=== PATIENT | female | born 1975 | race Hispanic/Latino ===

== ENCOUNTER 2020-11-27 08:58 | Emergency (ER) | payer SELFPAY ==
[~2020-11-27] VITALS: Ht 175.3 cm; Wt 122.5 kg
[2020-11-27] MEDS ORDERED: ONDANSETRON HCL INJ 2MG/ML 2ML 2 MG/ML VIAL IV NR (09:25)
[2020-11-27] MEDS ORDERED: CASIRIVIMAB/IMDEVIMAB 10 ML in SODIUM CHLORIDE 0.9% 100 ML IV ONE (09:30)
[2020-11-27] MEDS ORDERED: IBUPROFEN 600 MG TAB PO NR (09:30)
== END 2020-11-27 10:35 | disposition home or self-care (01) ==
LOC: ER 09:15
DX: R50.9 Fever, unspecified (principal); R06.02 Shortness of breath; R05 Cough; U07.1 COVID-19; R11.2 Nausea with vomiting, unspecified; I10 Essential (primary) hypertension; M32.9 Systemic lupus erythematosus, unspecified; F41.9 Anxiety disorder, unspecified
CPT/HCPCS: 99283; J2405; J7050

== ENCOUNTER 2020-11-28 17:20 | Inpatient (IN) | payer OTHER, SELFPAY ==
[~2020-11-28] VITALS: Ht 170.2 cm; Wt 106.3 kg
[2020-11-28] MEDS ORDERED: DEXAMETHASONE SOD PHOS 10 MG/1 ML VIAL IV ONE (18:00)
[2020-11-28] MEDS ORDERED: CEFTRIAXONE 2 GM in SODIUM CHLORIDE 0.9% 100 ML IV ONE (18:00)
[2020-11-28] MEDS ORDERED: SODIUM CHLORIDE 0.9% 1000ML 1,000 ML IV ONE (18:00)
[2020-11-28 18:10] LABS: BASOPHILS % 0.2 % (0.0-1.0); HEMATOCRIT 43.7 % (34.2-44.1); LYMPHOCYTES # (AUTO) 0.9 (1.0-3.2); LYMPHOCYTES % 14.2 % (18.0-39.1); MEAN CORPUSCULAR HEMOGLOBIN 27.7 pg (28-32); MEAN CORPUSCULAR VOLUME 86.4 fL (81-99); MONOCYTES # (AUTO) 0.3 (0.2-0.8); MONOCYTES % 4.7 % (4.4-11.3); NEUTROPHILS # (AUTO) 5.3 (2.1-6.9); NEUTROPHILS % 80.4 % (38.7-80.0); PLATELET COUNT 252 x10e3/uL (140-360); RED BLOOD COUNT 5.06 x10e6/uL (3.6-5.1); RED CELL DISTRIBUTION WIDTH 14.3 % (11.7-14.4)
[2020-11-28 18:34] LABS: ALANINE AMINOTRANSFERASE 27 IU/L (0-55); ALBUMIN 2.9 g/dL (3.5-5.0); ALBUMIN/GLOBULIN RATIO 0.5 (0.8-2.0); ALKALINE PHOSPHATASE 53 IU/L (40-150); ANION GAP 16.4 mmol/L (8-16); BLOOD UREA NITROGEN 12 mg/dL (7-26); BUN/CREATININE RATIO 11 (6-25); CALCIUM 9.3 mg/dL (8.4-10.2); CARBON DIOXIDE 24 mmol/L (22-29); CHLORIDE 103 mmol/L (98-107); CREATINE KINASE 92 IU/L (29-168); CREATININE, SERUM 1.07 mg/dL (0.57-1.11); EST GLOMERULAR FILTRATION RATE 56 ML/MIN (60-); GLUCOSE 118 mg/dL (74-118); POTASSIUM 3.4 mmol/L (3.5-5.1); SODIUM 140 mmol/L (136-145)
[2020-11-28] MEDS: ASCORBIC ACID 500 MG TAB PO SCH (20:00)
[2020-11-28] MEDS: SODIUM CHLORIDE 0.9% 1000ML 1,000 ML IV SCH (20:00)
[2020-11-28] MEDS ORDERED: ONDANSETRON HCL INJ 2MG/ML 2ML 2 MG/ML VIAL IV PRN (20:00)
[2020-11-28] MEDS: ENOXAPARIN INJ 80 MG/0.8 ML SYR SC SCH (20:00)
[2020-11-29] MEDS: SODIUM CHLORIDE 0.9% 1000ML 1,000 ML IV SCH ×3 (03:37→20:45)
[2020-11-29] MEDS ORDERED: GUAIFENESIN/DEXTROMETHORPHAN LIQD 5 ML UDC NG PRN (05:15)
[2020-11-29] MEDS ORDERED: ZOLPIDEM TARTRATE 5 MG TAB PO PRN (05:15)
[2020-11-29 06:12] LABS: HEMATOCRIT 35.7 % (34.2-44.1); HEMOGLOBIN 12.2 g/dL (12.0-16.0); LYMPHOCYTES # (AUTO) 0.5 (1.0-3.2); LYMPHOCYTES % 15.4 % (18.0-39.1); MEAN CORPUSCULAR HEMOGLOBIN 30.3 pg (28-32); MEAN CORPUSCULAR HGB CONC 34.2 g/dL (31-35); MEAN CORPUSCULAR VOLUME 88.6 fL (81-99); MONOCYTES # (AUTO) 0.2 (0.2-0.8); MONOCYTES % 5.1 % (4.4-11.3); NEUTROPHILS # (AUTO) 2.5 (2.1-6.9); NEUTROPHILS % 79.2 % (38.7-80.0); PLATELET COUNT 177 x10e3/uL (140-360); RED BLOOD COUNT 4.03 x10e6/uL (3.6-5.1); RED CELL DISTRIBUTION WIDTH 15.9 % (11.7-14.4)
[2020-11-29 06:47] LABS: CREATINE KINASE 64 IU/L (29-168)
[2020-11-29 06:49] LABS: ALBUMIN 2.5 g/dL (3.5-5.0); ALBUMIN/GLOBULIN RATIO 0.5 (0.8-2.0); ANION GAP 16.7 mmol/L (8-16); CALCIUM 8.6 mg/dL (8.4-10.2); CREATININE, SERUM 0.78 mg/dL (0.57-1.11); POTASSIUM 3.7 mmol/L (3.5-5.1)
[2020-11-29] MEDS ORDERED: GUAIFENESIN/DEXTROMETHORPHAN 237 ML SYRUP PO PRN (07:30)
[2020-11-29] MEDS: DEXAMETHASONE SOD PHOS 10 MG/1 ML VIAL IV SCH (08:43)
[2020-11-29] MEDS: BENZONATATE 100 MG CAP PO SCH ×3 (08:47→21:00)
[2020-11-29] MEDS: LORATADINE 10 MG TAB PO SCH (08:47)
[2020-11-29] MEDS: ASCORBIC ACID 500 MG TAB PO SCH ×2 (08:48→16:12)
[2020-11-29] MEDS: ENOXAPARIN INJ 80 MG/0.8 ML SYR SC SCH ×2 (08:50→16:12)
[2020-11-29] MEDS ORDERED: REMDESIVIR 200MG 200 MG IV ONE (09:00)
[2020-11-29] MEDS ORDERED: REMDESIVIR 200MG 200 MG in SODIUM CHLORIDE 0.9% 100 ML IV ONE (09:00)
[2020-11-29] MEDS: ZINC SULFATE 50 MG CAP PO SCH (10:24)
[2020-11-29 15:26] VITALS: BP 138/77
[2020-11-29] MEDS ORDERED: BUSPIRONE HCL10 MG PO (15:41)
[2020-11-29] MEDS ORDERED: AMLODIPINE BESYL5 MG PO (15:41)
[2020-11-29 16:01] LABS: CREATINE KINASE 58 IU/L (29-168)
[2020-11-29] MEDS: CEFTRIAXONE 2 GM in SODIUM CHLORIDE 0.9% 100 ML IV SCH (17:14)
[2020-11-29 20:00] VITALS: BP 133/75
[2020-11-29 22:53] VITALS: BP 133/75
[2020-11-30] VITALS (8 sets, daily range): BP systolic 102–150; BP diastolic 62–88
[2020-11-30] MEDS: SODIUM CHLORIDE 0.9% 1000ML 1,000 ML IV SCH ×3 (06:43→22:00)
[2020-11-30] MEDS: DEXAMETHASONE SOD PHOS 10 MG/1 ML VIAL IV SCH (08:31)
[2020-11-30] MEDS: BENZONATATE 100 MG CAP PO SCH ×3 (08:31→21:00)
[2020-11-30] MEDS: ENOXAPARIN INJ 80 MG/0.8 ML SYR SC SCH ×2 (08:31→17:14)
[2020-11-30] MEDS: LORATADINE 10 MG TAB PO SCH (08:31)
[2020-11-30] MEDS: REMDESIVIR 100MG 100 MG in SODIUM CHLORIDE 0.9% 100 ML IV SCH (08:31)
[2020-11-30] MEDS: ZINC SULFATE 50 MG CAP PO SCH (08:32)
[2020-11-30] MEDS: ASCORBIC ACID 500 MG TAB PO SCH ×2 (08:32→17:14)
[2020-11-30 08:49] LABS: BASOPHILS % 0.1 % (0.0-1.0); HEMATOCRIT 43.1 % (34.2-44.1); HEMOGLOBIN 13.1 g/dL (12.0-16.0); LYMPHOCYTES # (AUTO) 0.9 (1.0-3.2); LYMPHOCYTES % 12.8 % (18.0-39.1); MEAN CORPUSCULAR HEMOGLOBIN 27.1 pg (28-32); MEAN CORPUSCULAR HGB CONC 30.4 g/dL (31-35); MEAN CORPUSCULAR VOLUME 89.2 fL (81-99); MONOCYTES # (AUTO) 0.6 (0.2-0.8); MONOCYTES % 8.6 % (4.4-11.3); NEUTROPHILS # (AUTO) 5.4 (2.1-6.9); NEUTROPHILS % 78.1 % (38.7-80.0); PLATELET COUNT 291 x10e3/uL (140-360); RED BLOOD COUNT 4.83 x10e6/uL (3.6-5.1); RED CELL DISTRIBUTION WIDTH 14.4 % (11.7-14.4)
[2020-11-30] MEDS ORDERED: REMDESIVIR 100MG 100 MG IV SCH (09:00)
[2020-11-30 09:31] LABS: ALBUMIN 2.5 g/dL (3.5-5.0); ALBUMIN/GLOBULIN RATIO 0.6 (0.8-2.0); ANION GAP 16.2 mmol/L (8-16); CALCIUM 8.5 mg/dL (8.4-10.2); CREATININE, SERUM 0.75 mg/dL (0.57-1.11); POTASSIUM 3.2 mmol/L (3.5-5.1)
[2020-11-30] MEDS: BARICITINIB 2 MG TABLET PO SCH (17:14)
[2020-11-30] MEDS: CEFTRIAXONE 2 GM in SODIUM CHLORIDE 0.9% 100 ML IV SCH (17:14)
[2020-12-01] VITALS (8 sets, daily range): BP systolic 125–158; BP diastolic 78–93
[2020-12-01] MEDS: SODIUM CHLORIDE 0.9% 1000ML 1,000 ML IV SCH ×3 (06:52→17:04)
[2020-12-01 08:46] LABS: BASOPHILS % 0.1 % (0.0-1.0); HEMATOCRIT 38.9 % (34.2-44.1); HEMOGLOBIN 12.6 g/dL (12.0-16.0); LYMPHOCYTES # (AUTO) 1.2 (1.0-3.2); MEAN CORPUSCULAR HEMOGLOBIN 27.6 pg (28-32); MEAN CORPUSCULAR HGB CONC 32.4 g/dL (31-35); MEAN CORPUSCULAR VOLUME 85.3 fL (81-99); MONOCYTES # (AUTO) 0.8 (0.2-0.8); NEUTROPHILS % 74.3 % (38.7-80.0); PLATELET COUNT 341 x10e3/uL (140-360); RED BLOOD COUNT 4.56 x10e6/uL (3.6-5.1)
[2020-12-01 09:09] LABS: ALBUMIN 2.6 g/dL (3.5-5.0); ALBUMIN/GLOBULIN RATIO 0.6 (0.8-2.0); ANION GAP 13.3 mmol/L (8-16); CALCIUM 8.6 mg/dL (8.4-10.2); CREATININE, SERUM 0.76 mg/dL (0.57-1.11); POTASSIUM 3.3 mmol/L (3.5-5.1)
[2020-12-01] MEDS: ZINC SULFATE 50 MG CAP PO SCH (09:25)
[2020-12-01] MEDS: BARICITINIB 2 MG TABLET PO SCH (09:25)
[2020-12-01] MEDS: LORATADINE 10 MG TAB PO SCH (09:25)
[2020-12-01] MEDS: ASCORBIC ACID 500 MG TAB PO SCH ×2 (09:25→16:32)
[2020-12-01] MEDS: REMDESIVIR 100MG 100 MG in SODIUM CHLORIDE 0.9% 100 ML IV SCH (09:25)
[2020-12-01] MEDS: ENOXAPARIN INJ 80 MG/0.8 ML SYR SC SCH ×2 (09:25→16:32)
[2020-12-01] MEDS: DEXAMETHASONE SOD PHOS 10 MG/1 ML VIAL IV SCH (09:25)
[2020-12-01] MEDS: BENZONATATE 100 MG CAP PO SCH ×3 (09:25→21:00)
[2020-12-01] MEDS: CEFTRIAXONE 2 GM in SODIUM CHLORIDE 0.9% 100 ML IV SCH (17:04)
[2020-12-02] VITALS (7 sets, daily range): BP systolic 94–161; BP diastolic 63–94
[2020-12-02] MEDS: SODIUM CHLORIDE 0.9% 1000ML 1,000 ML IV SCH ×3 (05:33→21:06)
[2020-12-02 07:06] LABS: BASOPHILS % 0.1 % (0.0-1.0); HEMATOCRIT 38.5 % (34.2-44.1); HEMOGLOBIN 12.6 g/dL (12.0-16.0); LYMPHOCYTES # (AUTO) 0.9 (1.0-3.2); LYMPHOCYTES % 9.6 % (18.0-39.1); MEAN CORPUSCULAR HGB CONC 32.7 g/dL (31-35); MEAN CORPUSCULAR VOLUME 85.6 fL (81-99); MONOCYTES # (AUTO) 0.6 (0.2-0.8); MONOCYTES % 6.8 % (4.4-11.3); NEUTROPHILS # (AUTO) 7.8 (2.1-6.9); NEUTROPHILS % 82.9 % (38.7-80.0); PLATELET COUNT 358 x10e3/uL (140-360); RED CELL DISTRIBUTION WIDTH 13.6 % (11.7-14.4)
[2020-12-02 07:33] LABS: ALBUMIN 2.5 g/dL (3.5-5.0); ALBUMIN/GLOBULIN RATIO 0.6 (0.8-2.0); ANION GAP 13.8 mmol/L (8-16); CALCIUM 8.3 mg/dL (8.4-10.2); CREATININE, SERUM 0.81 mg/dL (0.57-1.11)
[2020-12-02 07:37] LABS: POTASSIUM 2.8 mmol/L (3.5-5.1)
[2020-12-02] MEDS ORDERED: POTASSIUM CHLORIDE 20 MEQ TAB CR PO ONE (08:15)
[2020-12-02] MEDS: DEXAMETHASONE SOD PHOS 10 MG/1 ML VIAL IV SCH (09:02)
[2020-12-02] MEDS: REMDESIVIR 100MG 100 MG in SODIUM CHLORIDE 0.9% 100 ML IV SCH (09:02)
[2020-12-02] MEDS: LORATADINE 10 MG TAB PO SCH (09:02)
[2020-12-02] MEDS: BENZONATATE 100 MG CAP PO SCH ×3 (09:02→21:06)
[2020-12-02] MEDS: ASCORBIC ACID 500 MG TAB PO SCH ×2 (09:02→16:43)
[2020-12-02] MEDS: BARICITINIB 2 MG TABLET PO SCH (09:02)
[2020-12-02] MEDS: ENOXAPARIN INJ 80 MG/0.8 ML SYR SC SCH ×2 (09:03→16:43)
[2020-12-02] MEDS: ZINC SULFATE 50 MG CAP PO SCH (09:03)
[2020-12-02] MEDS: CEFTRIAXONE 2 GM in SODIUM CHLORIDE 0.9% 100 ML IV SCH (18:01)
[2020-12-03] VITALS (7 sets, daily range): BP systolic 139–162; BP diastolic 74–92
[2020-12-03 07:52] LABS: BASOPHILS % 0.1 % (0.0-1.0); EOSINOPHILS % 0.4 % (0.0-6.0); HEMOGLOBIN 12.2 g/dL (12.0-16.0); LYMPHOCYTES # (AUTO) 0.8 (1.0-3.2); LYMPHOCYTES % 7.1 % (18.0-39.1); MEAN CORPUSCULAR HEMOGLOBIN 27.8 pg (28-32); MEAN CORPUSCULAR VOLUME 84.3 fL (81-99); MONOCYTES # (AUTO) 0.6 (0.2-0.8); NEUTROPHILS # (AUTO) 9.5 (2.1-6.9); NEUTROPHILS % 86.4 % (38.7-80.0); PLATELET COUNT 395 x10e3/uL (140-360); RED BLOOD COUNT 4.39 x10e6/uL (3.6-5.1); RED CELL DISTRIBUTION WIDTH 13.5 % (11.7-14.4)
[2020-12-03 08:15] LABS: ALBUMIN 2.3 g/dL (3.5-5.0); ALBUMIN/GLOBULIN RATIO 0.5 (0.8-2.0); ANION GAP 13.1 mmol/L (8-16); CALCIUM 8.1 mg/dL (8.4-10.2); CREATININE, SERUM 0.69 mg/dL (0.57-1.11); POTASSIUM 3.1 mmol/L (3.5-5.1)
[2020-12-03] MEDS: ZINC SULFATE 50 MG CAP PO SCH (09:00)
[2020-12-03] MEDS: ENOXAPARIN INJ 80 MG/0.8 ML SYR SC SCH ×2 (09:00→17:52)
[2020-12-03] MEDS: ASCORBIC ACID 500 MG TAB PO SCH ×2 (09:00→17:52)
[2020-12-03] MEDS: BENZONATATE 100 MG CAP PO SCH ×3 (09:00→20:56)
[2020-12-03] MEDS: BARICITINIB 2 MG TABLET PO SCH (09:00)
[2020-12-03] MEDS: DEXAMETHASONE SOD PHOS 10 MG/1 ML VIAL IV SCH (09:00)
[2020-12-03] MEDS: REMDESIVIR 100MG 100 MG in SODIUM CHLORIDE 0.9% 100 ML IV SCH (09:00)
[2020-12-03] MEDS: LORATADINE 10 MG TAB PO SCH (09:00)
[2020-12-03] MEDS: SODIUM CHLORIDE 0.9% 1000ML 1,000 ML IV SCH ×3 (13:45→20:56)
[2020-12-03] MEDS: CEFTRIAXONE 2 GM in SODIUM CHLORIDE 0.9% 100 ML IV SCH (17:52)
[2020-12-04] VITALS (8 sets, daily range): BP systolic 113–151; BP diastolic 52–90
[2020-12-04] MEDS: SODIUM CHLORIDE 0.9% 1000ML 1,000 ML IV SCH (05:47)
[2020-12-04 06:38] LABS: ANION GAP 15.5 mmol/L (8-16); CALCIUM 9.3 mg/dL (8.4-10.2); CREATININE, SERUM 0.65 mg/dL (0.57-1.11); POTASSIUM 3.5 mmol/L (3.5-5.1)
[2020-12-04] MEDS: ZINC SULFATE 50 MG CAP PO SCH (08:41)
[2020-12-04] MEDS: ASCORBIC ACID 500 MG TAB PO SCH ×2 (08:41→18:10)
[2020-12-04] MEDS: LORATADINE 10 MG TAB PO SCH (08:41)
[2020-12-04] MEDS: DEXAMETHASONE SOD PHOS 10 MG/1 ML VIAL IV SCH (08:41)
[2020-12-04] MEDS: BENZONATATE 100 MG CAP PO SCH ×3 (08:41→22:40)
[2020-12-04] MEDS: ENOXAPARIN INJ 80 MG/0.8 ML SYR SC SCH ×2 (08:41→18:11)
[2020-12-04] MEDS ORDERED: FUROSEMIDE INJ 10 MG/ML 4 ML VIAL IV ONE (11:30)
[2020-12-04] MEDS ORDERED: SODIUM CHLORIDE 0.9% 250ML 250 ML ONE (15:52)
[2020-12-04] MEDS: FUROSEMIDE INJ 10 MG/ML 2 ML VIAL IV SCH (18:10)
[2020-12-04] MEDS: METOPROLOL TARTRATE 25 MG TAB PO SCH (18:10)
[2020-12-04] MEDS: PIPERACILLIN/TAZOBACTAM 3.375 GM in SODIUM CHLORIDE 0.9% 50ML 50 ML IV SCH ×2 (18:11→22:40)
[2020-12-05] VITALS (8 sets, daily range): BP systolic 104–135; BP diastolic 55–73
[2020-12-05] MEDS: DEXMEDETOMIDINE 400MCG/NS100ML 100 ML IV PRN ×2 (05:30→15:38)
[2020-12-05] MEDS: PIPERACILLIN/TAZOBACTAM 3.375 GM in SODIUM CHLORIDE 0.9% 50ML 50 ML IV SCH ×3 (06:13→22:12)
[2020-12-05 06:51] LABS: BASOPHILS % 0.1 % (0.0-1.0); EOSINOPHILS # (AUTO) 0.1 (0.0-0.4); EOSINOPHILS % 0.5 % (0.0-6.0); HEMATOCRIT 36.8 % (34.2-44.1); HEMOGLOBIN 12.1 g/dL (12.0-16.0); LYMPHOCYTES # (AUTO) 0.6 (1.0-3.2); LYMPHOCYTES % 4.8 % (18.0-39.1); MEAN CORPUSCULAR HEMOGLOBIN 27.4 pg (28-32); MEAN CORPUSCULAR HGB CONC 32.9 g/dL (31-35); MEAN CORPUSCULAR VOLUME 83.3 fL (81-99); MONOCYTES # (AUTO) 0.5 (0.2-0.8); MONOCYTES % 4.1 % (4.4-11.3); NEUTROPHILS # (AUTO) 10.6 (2.1-6.9); NEUTROPHILS % 88.7 % (38.7-80.0); PLATELET COUNT 439 x10e3/uL (140-360); RED BLOOD COUNT 4.42 x10e6/uL (3.6-5.1)
[2020-12-05 07:20] LABS: ALBUMIN 2.1 g/dL (3.5-5.0); ALBUMIN/GLOBULIN RATIO 0.5 (0.8-2.0); ANION GAP 13.4 mmol/L (8-16); CALCIUM 8.6 mg/dL (8.4-10.2); CREATININE, SERUM 0.65 mg/dL (0.57-1.11); POTASSIUM 3.4 mmol/L (3.5-5.1)
[2020-12-05] MEDS ORDERED: POTASSIUM CHLORIDE 20 MEQ TAB CR PO STA (07:30)
[2020-12-05] MEDS: FUROSEMIDE INJ 10 MG/ML 2 ML VIAL IV SCH ×2 (08:10→17:40)
[2020-12-05] MEDS: LORATADINE 10 MG TAB PO SCH (08:10)
[2020-12-05] MEDS: ZINC SULFATE 50 MG CAP PO SCH (08:11)
[2020-12-05] MEDS: ENOXAPARIN INJ 80 MG/0.8 ML SYR SC SCH ×2 (08:11→17:41)
[2020-12-05] MEDS: ALPRAZOLAM 0.25 MG TAB PO SCH ×3 (08:11→22:12)
[2020-12-05] MEDS: ASCORBIC ACID 500 MG TAB PO SCH ×2 (08:11→17:41)
[2020-12-05] MEDS: METOPROLOL TARTRATE 25 MG TAB PO SCH ×2 (08:11→17:00)
[2020-12-05] MEDS: BENZONATATE 100 MG CAP PO SCH ×3 (08:11→21:11)
[2020-12-05 11:56] LABS: EOSINOPHILS % (MANUAL) 2 % (0-7); LYMPHOCYTES % (MANUAL) 2 % (19-48); MONOCYTES % (MANUAL) 2 % (3.4-9.0); NEUTROPHILS % (MANUAL) 94 % (40-74); NUCLEATED RED BLOOD CELLS 1; PLATELET ESTIMATE ADEQUATE; PLATELET MORPHOLOGY COMMENT NORMAL; RBC MORPHOLOGY COMMENT NORMAL
[2020-12-06] VITALS (18 sets, daily range): BP systolic 87–145; BP diastolic 21–80
[2020-12-06] MEDS: DEXMEDETOMIDINE 400MCG/NS100ML 100 ML IV PRN ×3 (05:17→18:43)
[2020-12-06] MEDS: PIPERACILLIN/TAZOBACTAM 3.375 GM in SODIUM CHLORIDE 0.9% 50ML 50 ML IV SCH ×3 (05:52→22:32)
[2020-12-06 06:04] LABS: BASOPHILS % 0.2 % (0.0-1.0); EOSINOPHILS # (AUTO) 0.1 (0.0-0.4); EOSINOPHILS % 0.8 % (0.0-6.0); HEMATOCRIT 38.2 % (34.2-44.1); HEMOGLOBIN 12.5 g/dL (12.0-16.0); LYMPHOCYTES # (AUTO) 0.8 (1.0-3.2); MEAN CORPUSCULAR HEMOGLOBIN 27.8 pg (28-32); MEAN CORPUSCULAR HGB CONC 32.7 g/dL (31-35); MEAN CORPUSCULAR VOLUME 85.1 fL (81-99); MONOCYTES # (AUTO) 0.5 (0.2-0.8); MONOCYTES % 3.6 % (4.4-11.3); NEUTROPHILS # (AUTO) 11.1 (2.1-6.9); PLATELET COUNT 421 x10e3/uL (140-360); RED BLOOD COUNT 4.49 x10e6/uL (3.6-5.1); RED CELL DISTRIBUTION WIDTH 14.2 % (11.7-14.4)
[2020-12-06] MEDS: ALPRAZOLAM 0.25 MG TAB PO SCH (06:05)
[2020-12-06 06:32] LABS: ALBUMIN 2.1 g/dL (3.5-5.0); ALBUMIN/GLOBULIN RATIO 0.4 (0.8-2.0); ANION GAP 13.4 mmol/L (8-16); CALCIUM 8.9 mg/dL (8.4-10.2); CREATININE, SERUM 0.68 mg/dL (0.57-1.11); POTASSIUM 3.4 mmol/L (3.5-5.1)
[2020-12-06] MEDS: ZINC SULFATE 50 MG CAP PO SCH (08:40)
[2020-12-06] MEDS: ENOXAPARIN INJ 80 MG/0.8 ML SYR SC SCH ×2 (08:40→17:12)
[2020-12-06] MEDS: BENZONATATE 100 MG CAP PO SCH ×3 (08:40→20:57)
[2020-12-06] MEDS: FUROSEMIDE INJ 10 MG/ML 2 ML VIAL IV SCH ×2 (08:40→17:12)
[2020-12-06] MEDS: ASCORBIC ACID 500 MG TAB PO SCH ×2 (08:40→15:24)
[2020-12-06] MEDS: LORATADINE 10 MG TAB PO SCH (08:40)
[2020-12-06] MEDS: METOPROLOL TARTRATE 25 MG TAB PO SCH ×2 (08:41→16:52)
[2020-12-06 09:26] LABS: ABG PCO2 39 mmHg (35-45)
[2020-12-06 09:27] LABS: ABG HCO3 31 mmol/L (22-26); ABG PO2 45 mmHg (80-105); ABG TCO2 32
[2020-12-06] MEDS: ACETAMINOPHEN 325 MG TAB PO PRN (19:50)
[2020-12-07] VITALS (34 sets, daily range): BP systolic 71–123; BP diastolic 50–78
[2020-12-07] MEDS: DEXMEDETOMIDINE 400MCG/NS100ML 100 ML IV PRN ×2 (01:30→06:56)
[2020-12-07 06:04] LABS: BASOPHILS % 0.2 % (0.0-1.0); EOSINOPHILS # (AUTO) 0.3 (0.0-0.4); EOSINOPHILS % 2.5 % (0.0-6.0); HEMATOCRIT 39.1 % (34.2-44.1); HEMOGLOBIN 12.4 g/dL (12.0-16.0); LYMPHOCYTES # (AUTO) 0.9 (1.0-3.2); LYMPHOCYTES % 6.7 % (18.0-39.1); MEAN CORPUSCULAR HEMOGLOBIN 27.1 pg (28-32); MEAN CORPUSCULAR HGB CONC 31.7 g/dL (31-35); MEAN CORPUSCULAR VOLUME 85.4 fL (81-99); MONOCYTES # (AUTO) 0.4 (0.2-0.8); MONOCYTES % 2.8 % (4.4-11.3); NEUTROPHILS % 86.7 % (38.7-80.0); PLATELET COUNT 410 x10e3/uL (140-360); RED BLOOD COUNT 4.58 x10e6/uL (3.6-5.1); RED CELL DISTRIBUTION WIDTH 14.3 % (11.7-14.4)
[2020-12-07] MEDS: PIPERACILLIN/TAZOBACTAM 3.375 GM in SODIUM CHLORIDE 0.9% 50ML 50 ML IV SCH (06:24)
[2020-12-07 06:30] LABS: ALBUMIN 1.8 g/dL (3.5-5.0); ALBUMIN/GLOBULIN RATIO 0.4 (0.8-2.0); ANION GAP 15.5 mmol/L (8-16); CALCIUM 8.6 mg/dL (8.4-10.2); CREATININE, SERUM 0.68 mg/dL (0.57-1.11); POTASSIUM 3.5 mmol/L (3.5-5.1)
[2020-12-07] MEDS: BENZONATATE 100 MG CAP PO SCH ×3 (08:12→21:00)
[2020-12-07] MEDS: ASCORBIC ACID 500 MG TAB PO SCH ×2 (08:12→16:30)
[2020-12-07] MEDS: LORATADINE 10 MG TAB PO SCH (08:12)
[2020-12-07] MEDS: FUROSEMIDE INJ 10 MG/ML 2 ML VIAL IV SCH ×3 (08:12→17:04)
[2020-12-07] MEDS: ZINC SULFATE 50 MG CAP PO SCH (08:12)
[2020-12-07] MEDS: ENOXAPARIN INJ 80 MG/0.8 ML SYR SC SCH ×3 (08:49→17:04)
[2020-12-07] MEDS: METOPROLOL TARTRATE 25 MG TAB PO SCH ×2 (08:49→16:30)
[2020-12-08] VITALS (27 sets, daily range): BP systolic 74–168; BP diastolic 44–110
[2020-12-08] MEDS: DEXMEDETOMIDINE 400MCG/NS100ML 100 ML IV PRN ×4 (02:32→23:56)
[2020-12-08 06:27] LABS: BASOPHILS % 0.1 % (0.0-1.0); EOSINOPHILS # (AUTO) 0.2 (0.0-0.4); EOSINOPHILS % 1.2 % (0.0-6.0); HEMATOCRIT 39.5 % (34.2-44.1); HEMOGLOBIN 12.5 g/dL (12.0-16.0); LYMPHOCYTES # (AUTO) 0.8 (1.0-3.2); LYMPHOCYTES % 4.8 % (18.0-39.1); MEAN CORPUSCULAR HEMOGLOBIN 27.7 pg (28-32); MEAN CORPUSCULAR HGB CONC 31.6 g/dL (31-35); MEAN CORPUSCULAR VOLUME 87.4 fL (81-99); MONOCYTES # (AUTO) 0.5 (0.2-0.8); MONOCYTES % 2.8 % (4.4-11.3); NEUTROPHILS # (AUTO) 14.7 (2.1-6.9); NEUTROPHILS % 90.2 % (38.7-80.0); PLATELET COUNT 325 x10e3/uL (140-360); RED BLOOD COUNT 4.52 x10e6/uL (3.6-5.1)
[2020-12-08 06:50] LABS: ALBUMIN 1.5 g/dL (3.5-5.0); ALBUMIN/GLOBULIN RATIO 0.3 (0.8-2.0); ANION GAP 16.7 mmol/L (8-16); CALCIUM 8.3 mg/dL (8.4-10.2); CREATININE, SERUM 0.58 mg/dL (0.57-1.11); POTASSIUM 3.7 mmol/L (3.5-5.1)
[2020-12-08] MEDS: METOPROLOL TARTRATE 25 MG TAB PO SCH ×2 (08:56→17:00)
[2020-12-08] MEDS: FUROSEMIDE INJ 10 MG/ML 2 ML VIAL IV SCH ×2 (09:00→09:01)
[2020-12-08] MEDS: BENZONATATE 100 MG CAP PO SCH ×3 (09:01→21:00)
[2020-12-08] MEDS: LORATADINE 10 MG TAB PO SCH (09:01)
[2020-12-08] MEDS: ASCORBIC ACID 500 MG TAB PO SCH ×2 (09:01→18:18)
[2020-12-08] MEDS: ZINC SULFATE 50 MG CAP PO SCH (09:02)
[2020-12-08] MEDS: ENOXAPARIN INJ 80 MG/0.8 ML SYR SC SCH ×2 (09:03→18:18)
[2020-12-08] MEDS: NOREPINEPHRINE 8 MG/D5W 250 ML 250 ML IV SCH (10:45)
[2020-12-08] MEDS ORDERED: LORAZEPAM 0.5 MG TAB PO ONE (17:00)
[2020-12-08] MEDS ORDERED: MIDAZOLAM HCL 2 MG/2 ML VIAL ONE (17:53)
[2020-12-08] MEDS ORDERED: SUCCINYLCHOLINE CHLORIDE 20 MG/ML 10ML VIAL ONE (17:53)
[2020-12-08] MEDS ORDERED: WATER STERILE 10 ML VIAL ONE (17:53)
[2020-12-08] MEDS ORDERED: ETOMIDATE 2 MG/ML 10 ML INJ IV ONE (17:53)
[2020-12-08] MEDS ORDERED: VECURONIUM BROMIDE FOR INJ 20 MG VIAL ONE (17:53)
[2020-12-09] VITALS (28 sets, daily range): BP systolic 37–153; BP diastolic 30–102
[2020-12-09] MEDS: DEXMEDETOMIDINE 400MCG/NS100ML 100 ML IV PRN ×2 (02:41→05:36)
[2020-12-09] MEDS ORDERED: SODIUM CHLORIDE 0.9% 100 ML 100 ML IV ONE (06:15)
[2020-12-09] MEDS ORDERED: NOREPINEPHRINE 8 MG/D5W 250 ML 250 ML IV PRN (06:15)
[2020-12-09] MEDS ORDERED: SODIUM CHLORIDE 0.9% 1000ML 1,000 ML ONE ×3 (06:25→07:42)
[2020-12-09] MEDS ORDERED: NOREPINEPHRINE 8 MG/D5W 250 ML 250 ML ONE (06:25)
[2020-12-09] MEDS ORDERED: FENTANYL 2000MCG/NS 250 250 ML ONE (06:52)
[2020-12-09] MEDS: FENTANYL 2000MCG/NS 250 250 ML IV PRN ×3 (07:00→21:26)
[2020-12-09] MEDS: MIDAZOLAM HCL 5MG/ML 10ML VIAL 100 ML IV PRN ×4 (07:31→22:46)
[2020-12-09 08:30] LABS: ABG PH 7.26 (7.35-7.45)
[2020-12-09 08:31] LABS: ABG HCO3 31 mmol/L (22-26); ABG PCO2 68 mmHg (35-45); ABG PO2 58 mmHg (80-105); ABG TCO2 33
[2020-12-09] MEDS ORDERED: LACTATED RINGER'S 1,000 ML INJ ONE (09:00)
[2020-12-09] MEDS: ZINC SULFATE 50 MG CAP PO SCH (09:00)
[2020-12-09] MEDS: METOPROLOL TARTRATE 25 MG TAB PO SCH ×2 (09:00→11:55)
[2020-12-09] MEDS: ASCORBIC ACID 500 MG TAB PO SCH ×2 (09:00→17:00)
[2020-12-09 09:06] LABS: BASOPHILS # (AUTO) 0.1 (0.0-0.1); BASOPHILS % 0.3 % (0.0-1.0); EOSINOPHILS # (AUTO) 0.1 (0.0-0.4); EOSINOPHILS % 0.7 % (0.0-6.0); HEMATOCRIT 37.8 % (34.2-44.1); LYMPHOCYTES # (AUTO) 1.1 (1.0-3.2); LYMPHOCYTES % 5.9 % (18.0-39.1); MEAN CORPUSCULAR HEMOGLOBIN 27.8 pg (28-32); MEAN CORPUSCULAR HGB CONC 31.7 g/dL (31-35); MEAN CORPUSCULAR VOLUME 87.7 fL (81-99); MONOCYTES # (AUTO) 0.8 (0.2-0.8); MONOCYTES % 4.5 % (4.4-11.3); NEUTROPHILS % 86.9 % (38.7-80.0); PLATELET COUNT 273 x10e3/uL (140-360); RED BLOOD COUNT 4.31 x10e6/uL (3.6-5.1); RED CELL DISTRIBUTION WIDTH 14.1 % (11.7-14.4)
[2020-12-09] MEDS: PROPOFOL IV EMULSION 10MG/ML 100 ML IV SCH ×3 (09:20→21:27)
[2020-12-09] MEDS ORDERED: PROPOFOL IV EMULSION 10MG/ML 100 ML ONE (09:26)
[2020-12-09 09:28] LABS: ANION GAP 14.7 mmol/L (8-16); CALCIUM 8.2 mg/dL (8.4-10.2); CREATININE, SERUM 0.65 mg/dL (0.57-1.11); POTASSIUM 3.7 mmol/L (3.5-5.1)
[2020-12-09] MEDS: ENOXAPARIN 30 MG/0.3 ML SYR SC SCH ×2 (10:18→17:01)
[2020-12-09] MEDS: Vancomycin IV 1 GM in SODIUM CHLORIDE 0.9% 250ML 250 ML IV SCH ×2 (10:18→20:26)
[2020-12-09] MEDS: NOREPINEPHRINE 8 MG/D5W 250 ML 250 ML IV SCH (11:00)
[2020-12-09] MEDS: CEFEPIME 1 GM in SODIUM CHLORIDE 0.9% 50ML 50 ML IV SCH ×2 (11:55→20:25)
[2020-12-09] MEDS ORDERED: FUROSEMIDE INJ 10 MG/ML 4 ML VIAL IV ONE (16:15)
[2020-12-09] MEDS: ROCURONIUM 1250MG/NS 250 250 ML IV PRN (21:27)
[2020-12-10] VITALS (25 sets, daily range): BP systolic 98–136; BP diastolic 49–67
[2020-12-10] MEDS: PROPOFOL IV EMULSION 10MG/ML 100 ML IV SCH ×6 (01:36→23:32)
[2020-12-10] MEDS: MIDAZOLAM HCL 5MG/ML 10ML VIAL 100 ML IV PRN ×4 (03:50→22:30)
[2020-12-10] MEDS: FENTANYL 2000MCG/NS 250 250 ML IV PRN ×3 (03:50→19:16)
[2020-12-10] MEDS: CEFEPIME 1 GM in SODIUM CHLORIDE 0.9% 50ML 50 ML IV SCH ×3 (04:04→21:33)
[2020-12-10 06:09] LABS: ALBUMIN 1.3 g/dL (3.5-5.0); ALBUMIN/GLOBULIN RATIO 0.3 (0.8-2.0); ANION GAP 11.7 mmol/L (8-16); CALCIUM 7.9 mg/dL (8.4-10.2); CREATININE, SERUM 0.58 mg/dL (0.57-1.11); POTASSIUM 3.7 mmol/L (3.5-5.1)
[2020-12-10 07:27] LABS: BASOPHILS # (AUTO) 0.1 (0.0-0.1); BASOPHILS % 0.4 % (0.0-1.0); EOSINOPHILS # (AUTO) 0.3 (0.0-0.4); EOSINOPHILS % 2.6 % (0.0-6.0); HEMATOCRIT 37.4 % (34.2-44.1); LYMPHOCYTES # (AUTO) 0.9 (1.0-3.2); LYMPHOCYTES % 8.3 % (18.0-39.1); MEAN CORPUSCULAR HEMOGLOBIN 27.5 pg (28-32); MEAN CORPUSCULAR HGB CONC 29.4 g/dL (31-35); MEAN CORPUSCULAR VOLUME 93.5 fL (81-99); MONOCYTES # (AUTO) 0.6 (0.2-0.8); NEUTROPHILS # (AUTO) 9.4 (2.1-6.9); NEUTROPHILS % 82.6 % (38.7-80.0); PLATELET COUNT 185 x10e3/uL (140-360); RED CELL DISTRIBUTION WIDTH 14.6 % (11.7-14.4)
[2020-12-10 08:13] LABS: ABG HCO3 33 mmol/L (22-26); ABG PCO2 77 mmHg (35-45); ABG PH 7.24 (7.35-7.45); ABG PO2 96 mmHg (80-105); ABG TCO2 35
[2020-12-10] MEDS: Vancomycin IV 1 GM in SODIUM CHLORIDE 0.9% 250ML 250 ML IV SCH ×2 (08:31→21:32)
[2020-12-10] MEDS: METOPROLOL TARTRATE 25 MG TAB PO SCH ×2 (08:31→16:09)
[2020-12-10] MEDS: ZINC SULFATE 50 MG CAP PO SCH (08:31)
[2020-12-10] MEDS: ENOXAPARIN 30 MG/0.3 ML SYR SC SCH ×2 (08:31→17:40)
[2020-12-10] MEDS: ASCORBIC ACID 500 MG TAB PO SCH ×2 (08:31→17:40)
[2020-12-10] MEDS: ROCURONIUM 1250MG/NS 250 250 ML IV PRN (08:32)
[2020-12-10] MEDS ORDERED: ALBUMIN 25% 25GM 100ML 0.25 GM/ML BTL IV SCH (10:15)
[2020-12-10] MEDS ORDERED: ALBUMIN 25% 25GM 100ML 100 ML IV SCH (10:30)
[2020-12-10] MEDS: NOREPINEPHRINE 8 MG/D5W 250 ML 250 ML IV SCH ×2 (11:00→14:20)
[2020-12-10] MEDS: FUROSEMIDE INJ 10 MG/ML 4 ML VIAL IV SCH ×2 (11:42→21:32)
[2020-12-10 14:23] LABS: ABG HCO3 31 mmol/L (22-26); ABG PCO2 50 mmHg (35-45); ABG PO2 80 mmHg (80-105); ABG TCO2 33
[2020-12-10] MEDS: ALBUMIN 25% 25GM 100ML 100 ML IV SCH (17:40)
[2020-12-11] VITALS (26 sets, daily range): BP systolic 92–132; BP diastolic 49–63
[2020-12-11] MEDS: FENTANYL 2000MCG/NS 250 250 ML IV PRN ×4 (02:11→23:53)
[2020-12-11] MEDS: ROCURONIUM 1250MG/NS 250 250 ML IV PRN ×2 (02:13→16:50)
[2020-12-11] MEDS: ALBUMIN 25% 25GM 100ML 100 ML IV SCH (02:31)
[2020-12-11] MEDS: PROPOFOL IV EMULSION 10MG/ML 100 ML IV SCH ×5 (03:52→21:51)
[2020-12-11] MEDS: MIDAZOLAM HCL 5MG/ML 10ML VIAL 100 ML IV PRN ×4 (03:57→23:54)
[2020-12-11] MEDS: CEFEPIME 1 GM in SODIUM CHLORIDE 0.9% 50ML 50 ML IV SCH ×3 (04:07→20:14)
[2020-12-11 06:35] LABS: BASOPHILS % 0.3 % (0.0-1.0); EOSINOPHILS # (AUTO) 0.2 (0.0-0.4); EOSINOPHILS % 2.6 % (0.0-6.0); HEMATOCRIT 31.6 % (34.2-44.1); HEMOGLOBIN 9.4 g/dL (12.0-16.0); LYMPHOCYTES # (AUTO) 0.7 (1.0-3.2); LYMPHOCYTES % 9.4 % (18.0-39.1); MEAN CORPUSCULAR HEMOGLOBIN 27.3 pg (28-32); MEAN CORPUSCULAR HGB CONC 29.7 g/dL (31-35); MEAN CORPUSCULAR VOLUME 91.9 fL (81-99); MONOCYTES # (AUTO) 0.4 (0.2-0.8); MONOCYTES % 5.3 % (4.4-11.3); NEUTROPHILS # (AUTO) 6.3 (2.1-6.9); NEUTROPHILS % 81.4 % (38.7-80.0); PLATELET COUNT 139 x10e3/uL (140-360); RED BLOOD COUNT 3.44 x10e6/uL (3.6-5.1); RED CELL DISTRIBUTION WIDTH 14.5 % (11.7-14.4)
[2020-12-11 07:06] LABS: ALBUMIN/GLOBULIN RATIO 0.6 (0.8-2.0); ANION GAP 11.1 mmol/L (8-16); CALCIUM 7.9 mg/dL (8.4-10.2); CREATININE, SERUM 0.6 mg/dL (0.57-1.11); POTASSIUM 3.1 mmol/L (3.5-5.1)
[2020-12-11] MEDS: METOPROLOL TARTRATE 25 MG TAB PO SCH ×2 (08:00→16:50)
[2020-12-11] MEDS: ENOXAPARIN 30 MG/0.3 ML SYR SC SCH ×2 (08:00→16:50)
[2020-12-11] MEDS: ZINC SULFATE 50 MG CAP PO SCH (08:00)
[2020-12-11] MEDS: Vancomycin IV 1 GM in SODIUM CHLORIDE 0.9% 250ML 250 ML IV SCH ×2 (08:00→21:04)
[2020-12-11] MEDS: ASCORBIC ACID 500 MG TAB PO SCH ×2 (08:00→16:50)
[2020-12-11] MEDS ORDERED: Vancomycin IV 1 GM VIAL ONE (08:01)
[2020-12-11] MEDS ORDERED: SODIUM CHLORIDE 0.9% 250ML 250 ML ONE (08:05)
[2020-12-11] MEDS ORDERED: POTASSIUM CHLORIDE 20MEQ/100ML 200 ML IV ONE (09:00)
[2020-12-11 09:33] LABS: ABG HCO3 36 mmol/L (22-26); ABG PCO2 64 mmHg (35-45); ABG PH 7.36 (7.35-7.45); ABG PO2 80 mmHg (80-105); ABG TCO2 38
[2020-12-12] VITALS (26 sets, daily range): BP systolic 99–116; BP diastolic 51–68
[2020-12-12] MEDS: PROPOFOL IV EMULSION 10MG/ML 100 ML IV SCH ×5 (03:24→21:24)
[2020-12-12] MEDS: CEFEPIME 1 GM in SODIUM CHLORIDE 0.9% 50ML 50 ML IV SCH ×3 (03:30→19:53)
[2020-12-12] MEDS: ROCURONIUM 1250MG/NS 250 250 ML IV PRN ×2 (05:42→19:50)
[2020-12-12] MEDS: MIDAZOLAM HCL 5MG/ML 10ML VIAL 100 ML IV PRN ×4 (05:43→21:26)
[2020-12-12 07:05] LABS: BASOPHILS % 0.5 % (0.0-1.0); EOSINOPHILS # (AUTO) 0.3 (0.0-0.4); EOSINOPHILS % 3.4 % (0.0-6.0); HEMATOCRIT 33.6 % (34.2-44.1); HEMOGLOBIN 9.9 g/dL (12.0-16.0); LYMPHOCYTES # (AUTO) 0.8 (1.0-3.2); LYMPHOCYTES % 9.9 % (18.0-39.1); MEAN CORPUSCULAR HEMOGLOBIN 27.5 pg (28-32); MEAN CORPUSCULAR HGB CONC 29.5 g/dL (31-35); MEAN CORPUSCULAR VOLUME 93.3 fL (81-99); MONOCYTES # (AUTO) 0.5 (0.2-0.8); MONOCYTES % 6.3 % (4.4-11.3); NEUTROPHILS # (AUTO) 6.4 (2.1-6.9); NEUTROPHILS % 77.6 % (38.7-80.0); PLATELET COUNT 150 x10e3/uL (140-360); RED CELL DISTRIBUTION WIDTH 14.8 % (11.7-14.4)
[2020-12-12 07:23] LABS: ALBUMIN 1.7 g/dL (3.5-5.0); ALBUMIN/GLOBULIN RATIO 0.4 (0.8-2.0); ANION GAP 11.8 mmol/L (8-16); CALCIUM 8.2 mg/dL (8.4-10.2); CREATININE, SERUM 0.6 mg/dL (0.57-1.11); POTASSIUM 3.8 mmol/L (3.5-5.1)
[2020-12-12] MEDS: FENTANYL 2000MCG/NS 250 250 ML IV PRN ×3 (08:00→21:25)
[2020-12-12 09:37] LABS: ABG HCO3 35 mmol/L (22-26); ABG PCO2 79 mmHg (35-45); ABG PH 7.26 (7.35-7.45); ABG PO2 76 mmHg (80-105); ABG TCO2 38
[2020-12-12] MEDS: ENOXAPARIN 30 MG/0.3 ML SYR SC SCH ×2 (10:00→17:22)
[2020-12-12] MEDS: ZINC SULFATE 50 MG CAP PO SCH (10:00)
[2020-12-12] MEDS: Vancomycin IV 1 GM in SODIUM CHLORIDE 0.9% 250ML 250 ML IV SCH ×2 (10:00→21:24)
[2020-12-12] MEDS: METOPROLOL TARTRATE 25 MG TAB PO SCH ×2 (10:00→17:22)
[2020-12-12] MEDS: ASCORBIC ACID 500 MG TAB PO SCH ×2 (10:00→17:22)
[2020-12-13] VITALS (27 sets, daily range): BP systolic 84–120; BP diastolic 48–63
[2020-12-13] MEDS: PROPOFOL IV EMULSION 10MG/ML 100 ML IV SCH ×6 (01:43→21:37)
[2020-12-13] MEDS: MIDAZOLAM HCL 5MG/ML 10ML VIAL 100 ML IV PRN ×5 (02:48→21:38)
[2020-12-13] MEDS: CEFEPIME 1 GM in SODIUM CHLORIDE 0.9% 50ML 50 ML IV SCH ×3 (03:40→20:05)
[2020-12-13] MEDS: FENTANYL 2000MCG/NS 250 250 ML IV PRN ×3 (05:01→18:06)
[2020-12-13 06:07] LABS: BASOPHILS # (AUTO) 0.1 (0.0-0.1); BASOPHILS % 0.7 % (0.0-1.0); EOSINOPHILS # (AUTO) 0.3 (0.0-0.4); EOSINOPHILS % 3.1 % (0.0-6.0); HEMATOCRIT 34.3 % (34.2-44.1); HEMOGLOBIN 9.9 g/dL (12.0-16.0); LYMPHOCYTES % 11.3 % (18.0-39.1); MEAN CORPUSCULAR HEMOGLOBIN 27.7 pg (28-32); MEAN CORPUSCULAR HGB CONC 28.9 g/dL (31-35); MEAN CORPUSCULAR VOLUME 96.1 fL (81-99); MONOCYTES # (AUTO) 0.8 (0.2-0.8); MONOCYTES % 9.1 % (4.4-11.3); NEUTROPHILS # (AUTO) 6.6 (2.1-6.9); NEUTROPHILS % 72.1 % (38.7-80.0); PLATELET COUNT 151 x10e3/uL (140-360); RED BLOOD COUNT 3.57 x10e6/uL (3.6-5.1); RED CELL DISTRIBUTION WIDTH 14.8 % (11.7-14.4)
[2020-12-13 06:45] LABS: ALBUMIN 1.5 g/dL (3.5-5.0); ALBUMIN/GLOBULIN RATIO 0.4 (0.8-2.0); ANION GAP 12.6 mmol/L (8-16); CREATININE, SERUM 0.66 mg/dL (0.57-1.11)
[2020-12-13 07:27] LABS: POTASSIUM 5.6 mmol/L (3.5-5.1)
[2020-12-13 07:57] LABS: ABG PCO2 74 mmHg (35-45); ABG PH 7.27 (7.35-7.45)
[2020-12-13 07:58] LABS: ABG HCO3 34 mmol/L (22-26); ABG PO2 68 mmHg (80-105); ABG TCO2 36
[2020-12-13] MEDS: METOPROLOL TARTRATE 25 MG TAB PO SCH ×2 (09:00→16:26)
[2020-12-13] MEDS: Vancomycin IV 1 GM in SODIUM CHLORIDE 0.9% 250ML 250 ML IV SCH ×2 (09:09→20:45)
[2020-12-13] MEDS: ASCORBIC ACID 500 MG TAB PO SCH ×2 (09:09→16:26)
[2020-12-13] MEDS: ZINC SULFATE 50 MG CAP PO SCH (09:09)
[2020-12-13] MEDS: ENOXAPARIN 30 MG/0.3 ML SYR SC SCH ×2 (09:09→16:26)
[2020-12-13] MEDS: ROCURONIUM 1250MG/NS 250 250 ML IV PRN (09:31)
[2020-12-13 11:34] LABS: ALBUMIN 1.4 g/dL (3.5-5.0); ALBUMIN/GLOBULIN RATIO 0.3 (0.8-2.0); ANION GAP 11.9 mmol/L (8-16); CALCIUM 7.3 mg/dL (8.4-10.2); CREATININE, SERUM 0.61 mg/dL (0.57-1.11); POTASSIUM 3.9 mmol/L (3.5-5.1)
[2020-12-14] VITALS (25 sets, daily range): BP systolic 83–122; BP diastolic 31–68
[2020-12-14] MEDS: ROCURONIUM 1250MG/NS 250 250 ML IV PRN (00:10)
[2020-12-14] MEDS: FENTANYL 2000MCG/NS 250 250 ML IV PRN ×4 (00:10→22:02)
[2020-12-14] MEDS: PROPOFOL IV EMULSION 10MG/ML 100 ML IV SCH ×5 (03:26→20:13)
[2020-12-14] MEDS: CEFEPIME 1 GM in SODIUM CHLORIDE 0.9% 50ML 50 ML IV SCH ×2 (03:45→11:43)
[2020-12-14] MEDS: MIDAZOLAM HCL 5MG/ML 10ML VIAL 100 ML IV PRN ×4 (03:56→20:14)
[2020-12-14 05:43] LABS: BASOPHILS # (AUTO) 0.1 (0.0-0.1); BASOPHILS % 0.8 % (0.0-1.0); EOSINOPHILS # (AUTO) 0.5 (0.0-0.4); EOSINOPHILS % 4.4 % (0.0-6.0); HEMOGLOBIN 9.5 g/dL (12.0-16.0); LYMPHOCYTES # (AUTO) 1.3 (1.0-3.2); LYMPHOCYTES % 10.9 % (18.0-39.1); MEAN CORPUSCULAR HEMOGLOBIN 27.5 pg (28-32); MEAN CORPUSCULAR HGB CONC 28.8 g/dL (31-35); MEAN CORPUSCULAR VOLUME 95.7 fL (81-99); MONOCYTES # (AUTO) 0.9 (0.2-0.8); MONOCYTES % 7.6 % (4.4-11.3); NEUTROPHILS # (AUTO) 8.1 (2.1-6.9); NEUTROPHILS % 69.8 % (38.7-80.0); PLATELET COUNT 173 x10e3/uL (140-360); RED BLOOD COUNT 3.45 x10e6/uL (3.6-5.1); RED CELL DISTRIBUTION WIDTH 15.1 % (11.7-14.4)
[2020-12-14 05:57] LABS: ALBUMIN 1.5 g/dL (3.5-5.0); ALBUMIN/GLOBULIN RATIO 0.3 (0.8-2.0); ANION GAP 13.2 mmol/L (8-16); CREATININE, SERUM 0.74 mg/dL (0.57-1.11); POTASSIUM 4.2 mmol/L (3.5-5.1)
[2020-12-14 08:16] LABS: ABG PH 7.25 (7.35-7.45)
[2020-12-14 08:17] LABS: ABG HCO3 31 mmol/L (22-26); ABG PCO2 71 mmHg (35-45); ABG PO2 62 mmHg (80-105); ABG TCO2 33
[2020-12-14] MEDS: METOPROLOL TARTRATE 25 MG TAB PO SCH ×2 (08:51→17:00)
[2020-12-14] MEDS: BALSAM PERU/CASTOR OIL 60 GM OINT...G. TP SCH (08:51)
[2020-12-14] MEDS: Vancomycin IV 1 GM in SODIUM CHLORIDE 0.9% 250ML 250 ML IV SCH (10:06)
[2020-12-14] MEDS: ENOXAPARIN 30 MG/0.3 ML SYR SC SCH ×2 (10:07→18:29)
[2020-12-14] MEDS: ZINC SULFATE 50 MG CAP PO SCH (10:07)
[2020-12-14] MEDS: ASCORBIC ACID 500 MG TAB PO SCH ×2 (10:07→18:29)
[2020-12-14] MEDS: NOREPINEPHRINE 8 MG/D5W 250 ML 250 ML IV PRN (11:37)
[2020-12-14] MEDS ORDERED: ALBUMIN 25% 25GM 100ML 0.25 GM/ML BTL IV SCH (14:45)
[2020-12-14] MEDS: FUROSEMIDE INJ 10 MG/ML 4 ML VIAL IV SCH (14:46)
[2020-12-14] MEDS: ALBUMIN 25% 25GM 100ML 100 ML IV SCH ×2 (15:36→23:04)
[2020-12-15] VITALS (23 sets, daily range): BP systolic 84–129; BP diastolic 50–77
[2020-12-15] MEDS: PROPOFOL IV EMULSION 10MG/ML 100 ML IV SCH ×4 (00:39→11:43)
[2020-12-15] MEDS: MIDAZOLAM HCL 5MG/ML 10ML VIAL 100 ML IV PRN ×3 (01:31→11:44)
[2020-12-15] MEDS: FUROSEMIDE INJ 10 MG/ML 4 ML VIAL IV SCH (04:02)
[2020-12-15] MEDS ORDERED: FUROSEMIDE INJ 10 MG/ML 4 ML VIAL ONE (04:12)
[2020-12-15] MEDS: FENTANYL 2000MCG/NS 250 250 ML IV PRN ×2 (04:51→11:44)
[2020-12-15 05:47] LABS: BASOPHILS # (AUTO) 0.1 (0.0-0.1); BASOPHILS % 0.7 % (0.0-1.0); EOSINOPHILS # (AUTO) 0.5 (0.0-0.4); EOSINOPHILS % 3.4 % (0.0-6.0); HEMOGLOBIN 9.2 g/dL (12.0-16.0); LYMPHOCYTES # (AUTO) 1.5 (1.0-3.2); LYMPHOCYTES % 10.9 % (18.0-39.1); MEAN CORPUSCULAR HEMOGLOBIN 27.8 pg (28-32); MEAN CORPUSCULAR HGB CONC 29.7 g/dL (31-35); MEAN CORPUSCULAR VOLUME 93.7 fL (81-99); MONOCYTES % 7.5 % (4.4-11.3); NEUTROPHILS # (AUTO) 9.1 (2.1-6.9); NEUTROPHILS % 68.5 % (38.7-80.0); PLATELET COUNT 205 x10e3/uL (140-360); RED BLOOD COUNT 3.31 x10e6/uL (3.6-5.1); RED CELL DISTRIBUTION WIDTH 15.4 % (11.7-14.4)
[2020-12-15] MEDS: ALBUMIN 25% 25GM 100ML 100 ML IV SCH ×3 (05:49→23:38)
[2020-12-15 07:53] LABS: ALBUMIN 2.3 g/dL (3.5-5.0); ALBUMIN/GLOBULIN RATIO 0.5 (0.8-2.0); ANION GAP 14.8 mmol/L (8-16); CREATININE, SERUM 0.88 mg/dL (0.57-1.11); POTASSIUM 3.8 mmol/L (3.5-5.1)
[2020-12-15] MEDS: METOPROLOL TARTRATE 25 MG TAB PO SCH ×2 (09:00→16:40)
[2020-12-15 09:08] LABS: ABG HCO3 31 mmol/L (22-26); ABG PCO2 69 mmHg (35-45); ABG PH 7.26 (7.35-7.45); ABG PO2 61 mmHg (80-105); ABG TCO2 33
[2020-12-15] MEDS: ENOXAPARIN 30 MG/0.3 ML SYR SC SCH ×2 (09:51→18:05)
[2020-12-15] MEDS: ZINC SULFATE 50 MG CAP PO SCH (09:51)
[2020-12-15] MEDS: ASCORBIC ACID 500 MG TAB PO SCH ×2 (09:51→16:40)
[2020-12-15] MEDS: BALSAM PERU/CASTOR OIL 60 GM OINT...G. TP SCH ×2 (09:52→23:38)
[2020-12-15] MEDS: NOREPINEPHRINE 8 MG/D5W 250 ML 250 ML IV PRN (09:53)
[2020-12-15] MEDS ORDERED: FUROSEMIDE INJ 100 MG in SODIUM CHLORIDE 0.9% 100 ML 90 ML IV SCH ×2 (13:45→14:00)
[2020-12-15] MEDS ORDERED: ALBUMIN 25% 25GM 100ML 0.25 GM/ML BTL IV SCH (14:00)
[2020-12-15] MEDS ORDERED: BALSAM PERU/CASTOR OIL 60 GM OINT...G. TP PRN (14:45)
[2020-12-15] MEDS: NYSTATIN 15 GM POWDER UD BTL TOP SCH (18:06)
[2020-12-16] VITALS (30 sets, daily range): BP systolic 94–115; BP diastolic 52–69
[2020-12-16] MEDS: ALBUMIN 25% 25GM 100ML 100 ML IV SCH (06:00)
[2020-12-16 06:17] LABS: BASOPHILS # (AUTO) 0.1 (0.0-0.1); BASOPHILS % 0.6 % (0.0-1.0); EOSINOPHILS # (AUTO) 0.6 (0.0-0.4); EOSINOPHILS % 5.1 % (0.0-6.0); HEMATOCRIT 29.2 % (34.2-44.1); HEMOGLOBIN 8.5 g/dL (12.0-16.0); LYMPHOCYTES # (AUTO) 1.8 (1.0-3.2); LYMPHOCYTES % 14.8 % (18.0-39.1); MEAN CORPUSCULAR HEMOGLOBIN 28.5 pg (28-32); MEAN CORPUSCULAR HGB CONC 29.1 g/dL (31-35); MONOCYTES % 7.6 % (4.4-11.3); NEUTROPHILS # (AUTO) 7.8 (2.1-6.9); NEUTROPHILS % 62.5 % (38.7-80.0); PLATELET COUNT 200 x10e3/uL (140-360); RED BLOOD COUNT 2.98 x10e6/uL (3.6-5.1)
[2020-12-16 06:44] LABS: ALBUMIN 2.8 g/dL (3.5-5.0); ALBUMIN/GLOBULIN RATIO 0.7 (0.8-2.0); ANION GAP 14.9 mmol/L (8-16); CALCIUM 8.4 mg/dL (8.4-10.2); CREATININE, SERUM 1.09 mg/dL (0.57-1.11); POTASSIUM 4.9 mmol/L (3.5-5.1)
[2020-12-16 08:29] LABS: ABG HCO3 32 mmol/L (22-26); ABG PCO2 82 mmHg (35-45); ABG PO2 62 mmHg (80-105); ABG TCO2 35
[2020-12-16] MEDS: METOPROLOL TARTRATE 25 MG TAB PO SCH ×2 (09:00→17:00)
[2020-12-16] MEDS: ASCORBIC ACID 500 MG TAB PO SCH ×2 (11:51→17:04)
[2020-12-16] MEDS: NYSTATIN 15 GM POWDER UD BTL TOP SCH ×2 (11:51→17:04)
[2020-12-16] MEDS: BALSAM PERU/CASTOR OIL 60 GM OINT...G. TP SCH ×3 (11:51→22:53)
[2020-12-16] MEDS: ZINC SULFATE 50 MG CAP PO SCH (11:51)
[2020-12-16] MEDS: FUROSEMIDE INJ 100 MG in SODIUM CHLORIDE 0.9% 100 ML 90 ML IV SCH ×2 (11:52→22:53)
[2020-12-16] MEDS: ENOXAPARIN 30 MG/0.3 ML SYR SC SCH ×2 (11:52→17:04)
[2020-12-16 16:23] LABS: CLARITY,URINE HAZY (CLEAR); COLOR,URINE YELLOW (YELLOW); KETONES,URINE NEGATIVE (NEGATIVE); LEUKOCYTE ESTERASE ,URINE TRACE (NEGATIVE); NITRITE,URINE NEGATIVE (NEGATIVE); PROTEIN,URINE DIPSTICK 2+ (NEGATIVE)
[2020-12-16 16:24] LABS: URINE UROBILINOGEN 1 mg/dL (0.2 - 1)
[2020-12-16 16:36] LABS: AMORPHOUS SEDIMENT,URINE MODERATE (FEW); BACTERIA,URINE MODERATE /HPF; EPITHELIAL CELLS,URINE FEW /LPF; WBC,URINE (MAN) 0-5 /HPF (0-5)
[2020-12-17] VITALS (26 sets, daily range): BP systolic 86–149; BP diastolic 51–78
[2020-12-17 06:22] LABS: BASOPHILS # (AUTO) 0.2 (0.0-0.1); BASOPHILS % 0.8 % (0.0-1.0); EOSINOPHILS # (AUTO) 0.8 (0.0-0.4); EOSINOPHILS % 4.3 % (0.0-6.0); HEMATOCRIT 30.7 % (34.2-44.1); LYMPHOCYTES # (AUTO) 2.1 (1.0-3.2); LYMPHOCYTES % 10.8 % (18.0-39.1); MEAN CORPUSCULAR HEMOGLOBIN 28.2 pg (28-32); MEAN CORPUSCULAR HGB CONC 29.3 g/dL (31-35); MEAN CORPUSCULAR VOLUME 96.2 fL (81-99); MONOCYTES # (AUTO) 1.2 (0.2-0.8); MONOCYTES % 6.2 % (4.4-11.3); NEUTROPHILS # (AUTO) 12.4 (2.1-6.9); NEUTROPHILS % 64.3 % (38.7-80.0); PLATELET COUNT 293 x10e3/uL (140-360); RED BLOOD COUNT 3.19 x10e6/uL (3.6-5.1); RED CELL DISTRIBUTION WIDTH 16.3 % (11.7-14.4)
[2020-12-17 06:51] LABS: ALBUMIN 2.7 g/dL (3.5-5.0); ALBUMIN/GLOBULIN RATIO 0.6 (0.8-2.0); CALCIUM 8.5 mg/dL (8.4-10.2); CREATININE, SERUM 1.26 mg/dL (0.57-1.11)
[2020-12-17 07:44] LABS: ABG PH 7.18 (7.35-7.45)
[2020-12-17 07:45] LABS: ABG HCO3 31 mmol/L (22-26); ABG PCO2 82 mmHg (35-45); ABG PO2 60 mmHg (80-105); ABG TCO2 33
[2020-12-17] MEDS: METOPROLOL TARTRATE 25 MG TAB PO SCH ×2 (09:00→16:17)
[2020-12-17] MEDS: FUROSEMIDE INJ 100 MG in SODIUM CHLORIDE 0.9% 100 ML 90 ML IV SCH ×2 (09:49→16:18)
[2020-12-17] MEDS: NYSTATIN 15 GM POWDER UD BTL TOP SCH ×2 (09:50→16:18)
[2020-12-17] MEDS: ENOXAPARIN 30 MG/0.3 ML SYR SC SCH ×2 (09:50→16:18)
[2020-12-17] MEDS: BALSAM PERU/CASTOR OIL 60 GM OINT...G. TP SCH ×3 (09:50→21:31)
[2020-12-17] MEDS: ASCORBIC ACID 500 MG TAB PO SCH ×2 (09:50→16:17)
[2020-12-17] MEDS: ZINC SULFATE 50 MG CAP PO SCH (09:50)
[2020-12-17] MEDS: FENTANYL 2000MCG/NS 250 250 ML IV PRN (09:50)
[2020-12-17] MEDS: MIDAZOLAM HCL 5MG/ML 10ML VIAL 100 ML IV PRN ×2 (09:51→21:33)
[2020-12-17] MEDS: FLUCONAZOLE 200 MG/100 ML 100 ML IV SCH (10:15)
[2020-12-17] MEDS: PROPOFOL IV EMULSION 10MG/ML 100 ML IV SCH ×3 (10:15→23:25)
[2020-12-17] MEDS: LINEZOLID 600 MG/D5W 300ML 300 ML IV SCH ×2 (10:44→21:31)
[2020-12-17 12:09] LABS: ABG PH 7.23 (7.35-7.45)
[2020-12-17 12:10] LABS: ABG HCO3 30 mmol/L (22-26); ABG PCO2 73 mmHg (35-45); ABG PO2 54 mmHg (80-105); ABG TCO2 33
[2020-12-17] MEDS: CEFEPIME 1 GM in SODIUM CHLORIDE 0.9% 50ML 50 ML IV SCH ×2 (14:00→21:31)
[2020-12-17] MEDS ORDERED: SODIUM CHLORIDE 0.9% 1000ML 2,000 ML ONE (17:31)
[2020-12-17] MEDS ORDERED: HEPARIN SOD (PORCINE) 1000 UNIT/ML SDV ONE (19:13)
[2020-12-18] VITALS (23 sets, daily range): BP systolic 94–137; BP diastolic 50–73
[2020-12-18] MEDS: PROPOFOL IV EMULSION 10MG/ML 100 ML IV SCH ×4 (00:30→20:49)
[2020-12-18] MEDS: MIDAZOLAM HCL 5MG/ML 10ML VIAL 100 ML IV PRN ×4 (00:34→20:50)
[2020-12-18] MEDS: FENTANYL 2000MCG/NS 250 250 ML IV PRN ×4 (00:34→20:48)
[2020-12-18] MEDS: FUROSEMIDE INJ 100 MG in SODIUM CHLORIDE 0.9% 100 ML 90 ML IV SCH ×3 (03:50→23:33)
[2020-12-18] MEDS: CEFEPIME 1 GM in SODIUM CHLORIDE 0.9% 50ML 50 ML IV SCH ×3 (05:06→20:46)
[2020-12-18] MEDS: NOREPINEPHRINE 8 MG/D5W 250 ML 250 ML IV PRN (06:39)
[2020-12-18] MEDS: ROCURONIUM 1250MG/NS 250 250 ML IV PRN ×2 (06:39→20:49)
[2020-12-18 06:41] LABS: BASOPHILS # (AUTO) 0.2 (0.0-0.1); BASOPHILS % 0.7 % (0.0-1.0); EOSINOPHILS # (AUTO) 0.3 (0.0-0.4); EOSINOPHILS % 1.6 % (0.0-6.0); HEMATOCRIT 26.7 % (34.2-44.1); LYMPHOCYTES # (AUTO) 3.1 (1.0-3.2); LYMPHOCYTES % 14.2 % (18.0-39.1); MEAN CORPUSCULAR HEMOGLOBIN 28.8 pg (28-32); MONOCYTES # (AUTO) 1.4 (0.2-0.8); MONOCYTES % 6.5 % (4.4-11.3); NEUTROPHILS # (AUTO) 12.9 (2.1-6.9); NEUTROPHILS % 59.5 % (38.7-80.0); PLATELET COUNT 291 x10e3/uL (140-360); RED BLOOD COUNT 2.78 x10e6/uL (3.6-5.1); RED CELL DISTRIBUTION WIDTH 16.3 % (11.7-14.4)
[2020-12-18 07:07] LABS: ALBUMIN 2.3 g/dL (3.5-5.0); ALBUMIN/GLOBULIN RATIO 0.5 (0.8-2.0); ANION GAP 15.2 mmol/L (8-16); CALCIUM 8.3 mg/dL (8.4-10.2); POTASSIUM 5.2 mmol/L (3.5-5.1)
[2020-12-18 08:13] LABS: BAND NEUTROPHILS % (MANUAL) 7 %; LYMPHOCYTES % (MANUAL) 12 % (19-48); METAMYELOCYTES % (MANUAL) 3 % (0-0); MONOCYTES % (MANUAL) 4 % (3.4-9.0); MYELOCYTES % (MANUAL) 6 % (0-0); NEUTROPHILS % (MANUAL) 66 % (40-74); NUCLEATED RED BLOOD CELLS 12; PLATELET ESTIMATE ADEQUATE; PROMYELOCYTES % (MANUAL) 1 % (0-0)
[2020-12-18 08:14] LABS: PLATELET MORPHOLOGY COMMENT NORMAL; RBC MORPHOLOGY COMMENT NORMAL
[2020-12-18] MEDS: METOPROLOL TARTRATE 25 MG TAB PO SCH ×2 (08:54→17:00)
[2020-12-18] MEDS: FLUCONAZOLE 200 MG/100 ML 100 ML IV SCH (08:54)
[2020-12-18] MEDS: ASCORBIC ACID 500 MG TAB PO SCH ×2 (08:55→17:20)
[2020-12-18] MEDS: NYSTATIN 15 GM POWDER UD BTL TOP SCH ×2 (08:55→17:21)
[2020-12-18] MEDS: BALSAM PERU/CASTOR OIL 60 GM OINT...G. TP SCH ×3 (08:55→20:46)
[2020-12-18] MEDS: ZINC SULFATE 50 MG CAP PO SCH (08:55)
[2020-12-18] MEDS: ENOXAPARIN 30 MG/0.3 ML SYR SC SCH ×2 (09:00→17:00)
[2020-12-18 09:24] LABS: ABG HCO3 28 mmol/L (22-26); ABG PCO2 79 mmHg (35-45); ABG PH 7.16 (7.35-7.45); ABG PO2 60 mmHg (80-105); ABG TCO2 30
[2020-12-18] MEDS: LINEZOLID 600 MG/D5W 300ML 300 ML IV SCH ×2 (12:44→20:46)
[2020-12-18 18:08] LABS: ABG HCO3 28 mmol/L (22-26); ABG PCO2 60 mmHg (35-45); ABG PH 7.27 (7.35-7.45); ABG PO2 71 mmHg (80-105); ABG TCO2 30
[2020-12-19] VITALS (25 sets, daily range): BP systolic 92–144; BP diastolic 43–70
[2020-12-19] MEDS: PROPOFOL IV EMULSION 10MG/ML 100 ML IV SCH ×4 (00:06→22:47)
[2020-12-19] MEDS: FLUCONAZOLE 200 MG/100 ML 100 ML IV SCH (05:52)
[2020-12-19] MEDS: CEFEPIME 1 GM in SODIUM CHLORIDE 0.9% 50ML 50 ML IV SCH ×3 (05:52→21:05)
[2020-12-19 06:45] LABS: BASOPHILS # (AUTO) 0.1 (0.0-0.1); BASOPHILS % 0.4 % (0.0-1.0); EOSINOPHILS # (AUTO) 1.2 (0.0-0.4); EOSINOPHILS % 5.6 % (0.0-6.0); HEMATOCRIT 25.9 % (34.2-44.1); HEMOGLOBIN 7.9 g/dL (12.0-16.0); LYMPHOCYTES # (AUTO) 1.8 (1.0-3.2); LYMPHOCYTES % 8.1 % (18.0-39.1); MEAN CORPUSCULAR HEMOGLOBIN 28.8 pg (28-32); MEAN CORPUSCULAR HGB CONC 30.5 g/dL (31-35); MEAN CORPUSCULAR VOLUME 94.5 fL (81-99); MONOCYTES % 4.5 % (4.4-11.3); NEUTROPHILS % 68.5 % (38.7-80.0); PLATELET COUNT 304 x10e3/uL (140-360); RED BLOOD COUNT 2.74 x10e6/uL (3.6-5.1); RED CELL DISTRIBUTION WIDTH 17.2 % (11.7-14.4)
[2020-12-19 07:08] LABS: ALBUMIN 2.1 g/dL (3.5-5.0); ALBUMIN/GLOBULIN RATIO 0.4 (0.8-2.0); ANION GAP 18.4 mmol/L (8-16); CALCIUM 8.4 mg/dL (8.4-10.2); CREATININE, SERUM 1.6 mg/dL (0.57-1.11); POTASSIUM 3.4 mmol/L (3.5-5.1)
[2020-12-19] MEDS: LINEZOLID 600 MG/D5W 300ML 300 ML IV SCH ×2 (08:24→21:05)
[2020-12-19] MEDS: METOPROLOL TARTRATE 25 MG TAB PO SCH ×2 (08:25→17:00)
[2020-12-19] MEDS: ASCORBIC ACID 500 MG TAB PO SCH ×2 (08:42→17:20)
[2020-12-19] MEDS: NYSTATIN 15 GM POWDER UD BTL TOP SCH ×2 (08:42→17:21)
[2020-12-19] MEDS: BALSAM PERU/CASTOR OIL 60 GM OINT...G. TP SCH ×3 (08:42→21:05)
[2020-12-19] MEDS: ZINC SULFATE 50 MG CAP PO SCH (08:42)
[2020-12-19] MEDS: FUROSEMIDE INJ 100 MG in SODIUM CHLORIDE 0.9% 100 ML 90 ML IV SCH ×2 (08:42→17:21)
[2020-12-19 10:05] LABS: ABG HCO3 31 mmol/L (22-26); ABG PCO2 59 mmHg (35-45); ABG PH 7.32 (7.35-7.45); ABG PO2 99 mmHg (80-105); ABG TCO2 32
[2020-12-19 10:20] LABS: ANISOCYTOSIS SLIGHT; BAND NEUTROPHILS % (MANUAL) 2 %; EOSINOPHILS % (MANUAL) 7 % (0-7); LYMPHOCYTES % (MANUAL) 7 % (19-48); METAMYELOCYTES % (MANUAL) 1 % (0-0); MONOCYTES % (MANUAL) 1 % (3.4-9.0); MYELOCYTES % (MANUAL) 7 % (0-0); NEUTROPHILS % (MANUAL) 75 % (40-74); NUCLEATED RED BLOOD CELLS 5
[2020-12-19 10:21] LABS: POLYCHROMASIA FEW
[2020-12-19 10:28] LABS: TEAR DROP CELLS FEW
[2020-12-19 10:29] LABS: PLATELET ESTIMATE ADEQUATE; PLATELET MORPHOLOGY COMMENT RARE EDTA CLUMPING; RBC MORPHOLOGY COMMENT ABNORMAL
[2020-12-19 10:30] LABS: LARGE PLATELETS FEW
[2020-12-19] MEDS: ENOXAPARIN SOD INJ 40 MG/0.4 ML SYR SC SCH (17:25)
[2020-12-19] MEDS: MIDAZOLAM HCL 5MG/ML 10ML VIAL 100 ML IV PRN (18:26)
[2020-12-19] MEDS: ROCURONIUM 1250MG/NS 250 250 ML IV PRN (18:26)
[2020-12-19] MEDS: FENTANYL 2000MCG/NS 250 250 ML IV PRN (18:27)
[2020-12-19] MEDS ORDERED: HEPARIN SOD (PORCINE) 1000 UNIT/ML SDV ONE (20:41)
[2020-12-19] MEDS: NOREPINEPHRINE 8 MG/D5W 250 ML 250 ML IV PRN ×4 (22:09→23:50)
[2020-12-20] VITALS (29 sets, daily range): BP systolic 94–124; BP diastolic 46–69
[2020-12-20] MEDS: NOREPINEPHRINE 8 MG/D5W 250 ML 250 ML IV PRN ×3 (00:57→22:02)
[2020-12-20] MEDS: FENTANYL 2000MCG/NS 250 250 ML IV PRN ×3 (01:03→21:46)
[2020-12-20] MEDS: MIDAZOLAM HCL 5MG/ML 10ML VIAL 100 ML IV PRN ×4 (01:27→20:57)
[2020-12-20] MEDS: PROPOFOL IV EMULSION 10MG/ML 100 ML IV SCH ×3 (02:13→07:36)
[2020-12-20] MEDS: ROCURONIUM 1250MG/NS 250 250 ML IV PRN (04:00)
[2020-12-20] MEDS: FUROSEMIDE INJ 100 MG in SODIUM CHLORIDE 0.9% 100 ML 90 ML IV SCH ×3 (04:17→13:14)
[2020-12-20] MEDS: CEFEPIME 1 GM in SODIUM CHLORIDE 0.9% 50ML 50 ML IV SCH ×3 (05:11→21:16)
[2020-12-20 06:26] LABS: BASOPHILS # (AUTO) 0.1 (0.0-0.1); BASOPHILS % 0.3 % (0.0-1.0); EOSINOPHILS # (AUTO) 1.3 (0.0-0.4); EOSINOPHILS % 4.5 % (0.0-6.0); HEMOGLOBIN 8.5 g/dL (12.0-16.0); LYMPHOCYTES # (AUTO) 2.6 (1.0-3.2); LYMPHOCYTES % 8.9 % (18.0-39.1); MEAN CORPUSCULAR HGB CONC 31.5 g/dL (31-35); MEAN CORPUSCULAR VOLUME 95.4 fL (81-99); MONOCYTES # (AUTO) 1.3 (0.2-0.8); MONOCYTES % 4.4 % (4.4-11.3); NEUTROPHILS # (AUTO) 20.1 (2.1-6.9); NEUTROPHILS % 68.6 % (38.7-80.0); PLATELET COUNT 324 x10e3/uL (140-360); RED BLOOD COUNT 2.83 x10e6/uL (3.6-5.1); RED CELL DISTRIBUTION WIDTH 18.2 % (11.7-14.4)
[2020-12-20 06:47] LABS: ALBUMIN 2.1 g/dL (3.5-5.0); ALBUMIN/GLOBULIN RATIO 0.4 (0.8-2.0); ANION GAP 17.5 mmol/L (8-16); CALCIUM 8.4 mg/dL (8.4-10.2); CREATININE, SERUM 1.72 mg/dL (0.57-1.11); POTASSIUM 3.5 mmol/L (3.5-5.1)
[2020-12-20 06:48] LABS: MAGNESIUM 1.8 MG/DL (1.3-2.1); PHOSPHORUS 4.4 MG/DL (2.3-4.7)
[2020-12-20] MEDS: METOPROLOL TARTRATE 25 MG TAB PO SCH ×2 (07:35→17:00)
[2020-12-20 08:26] LABS: ABG PH 7.25 (7.35-7.45)
[2020-12-20 08:27] LABS: ABG HCO3 29 mmol/L (22-26); ABG PCO2 67 mmHg (35-45); ABG PO2 52 mmHg (80-105); ABG TCO2 31
[2020-12-20 08:42] LABS: EOSINOPHILS % (MANUAL) 3 % (0-7); LYMPHOCYTES % (MANUAL) 6 % (19-48); METAMYELOCYTES % (MANUAL) 1 % (0-0); MONOCYTES % (MANUAL) 2 % (3.4-9.0); MYELOCYTES % (MANUAL) 4 % (0-0); NEUTROPHILS % (MANUAL) 84 % (40-74); NUCLEATED RED BLOOD CELLS 2; PLATELET ESTIMATE ADEQUATE
[2020-12-20 08:43] LABS: PLATELET MORPHOLOGY COMMENT NORMAL
[2020-12-20 08:44] LABS: ANISOCYTOSIS SLIGHT; POLYCHROMASIA FEW; RBC MORPHOLOGY COMMENT ABNORMAL; TEAR DROP CELLS MODERATE
[2020-12-20] MEDS: BALSAM PERU/CASTOR OIL 60 GM OINT...G. TP SCH ×2 (09:17→21:16)
[2020-12-20] MEDS: NYSTATIN 15 GM POWDER UD BTL TOP SCH ×2 (09:17→17:16)
[2020-12-20] MEDS: FLUCONAZOLE 200 MG/100 ML 100 ML IV SCH (09:17)
[2020-12-20] MEDS: ZINC SULFATE 50 MG CAP PO SCH (09:17)
[2020-12-20] MEDS: ASCORBIC ACID 500 MG TAB PO SCH ×2 (09:17→17:16)
[2020-12-20] MEDS: LINEZOLID 600 MG/D5W 300ML 300 ML IV SCH ×2 (09:18→21:16)
[2020-12-20] MEDS: ENOXAPARIN SOD INJ 40 MG/0.4 ML SYR SC SCH (17:16)
[2020-12-20] MEDS ORDERED: HEPARIN SOD (PORCINE) 1000 UNIT/ML SDV ONE (18:21)
[2020-12-20] MEDS: ACETAMINOPHEN 325 MG TAB PO PRN (23:00)
[2020-12-21] VITALS (31 sets, daily range): BP systolic 83–122; BP diastolic 42–65
[2020-12-21] MEDS: PROPOFOL IV EMULSION 10MG/ML 100 ML IV SCH ×4 (00:58→20:00)
[2020-12-21] MEDS: MIDAZOLAM HCL 5MG/ML 10ML VIAL 100 ML IV PRN ×4 (02:17→22:55)
[2020-12-21] MEDS: FENTANYL 2000MCG/NS 250 250 ML IV PRN ×2 (04:32→07:30)
[2020-12-21] MEDS: CEFEPIME 1 GM in SODIUM CHLORIDE 0.9% 50ML 50 ML IV SCH (05:07)
[2020-12-21 06:27] LABS: BASOPHILS # (AUTO) 0.1 (0.0-0.1); BASOPHILS % 0.3 % (0.0-1.0); EOSINOPHILS # (AUTO) 0.6 (0.0-0.4); HEMATOCRIT 26.3 % (34.2-44.1); HEMOGLOBIN 8.4 g/dL (12.0-16.0); MEAN CORPUSCULAR HEMOGLOBIN 31.2 pg (28-32); MEAN CORPUSCULAR HGB CONC 31.9 g/dL (31-35); MEAN CORPUSCULAR VOLUME 97.8 fL (81-99); MONOCYTES # (AUTO) 1.6 (0.2-0.8); MONOCYTES % 5.5 % (4.4-11.3); NEUTROPHILS # (AUTO) 20.8 (2.1-6.9); NEUTROPHILS % 69.4 % (38.7-80.0); PLATELET COUNT 345 x10e3/uL (140-360); RED BLOOD COUNT 2.69 x10e6/uL (3.6-5.1); RED CELL DISTRIBUTION WIDTH 20.1 % (11.7-14.4)
[2020-12-21 06:37] LABS: ALBUMIN 2.1 g/dL (3.5-5.0); ALBUMIN/GLOBULIN RATIO 0.3 (0.8-2.0); ANION GAP 21.3 mmol/L (8-16); CALCIUM 8.8 mg/dL (8.4-10.2); CREATININE, SERUM 1.98 mg/dL (0.57-1.11)
[2020-12-21 06:38] LABS: POTASSIUM 4.3 mmol/L (3.5-5.1)
[2020-12-21 08:17] LABS: BAND NEUTROPHILS % (MANUAL) 8 %; EOSINOPHILS % (MANUAL) 1 % (0-7); LYMPHOCYTES % (MANUAL) 7 % (19-48); MONOCYTES % (MANUAL) 2 % (3.4-9.0); MYELOCYTES % (MANUAL) 3 % (0-0); NEUTROPHILS % (MANUAL) 78 % (40-74); NUCLEATED RED BLOOD CELLS 11; PROMYELOCYTES % (MANUAL) 1 % (0-0)
[2020-12-21 08:18] LABS: ANISOCYTOSIS MODERATE; PLATELET ESTIMATE ADEQUATE; PLATELET MORPHOLOGY COMMENT NORMAL; POLYCHROMASIA FEW; RBC MORPHOLOGY COMMENT ABNORMAL
[2020-12-21 08:20] LABS: ABG HCO3 27 mmol/L (22-26); ABG PCO2 67 mmHg (35-45); ABG PH 7.22 (7.35-7.45); ABG PO2 54 mmHg (80-105); ABG TCO2 29
[2020-12-21] MEDS: METOPROLOL TARTRATE 25 MG TAB PO SCH ×2 (09:00→16:53)
[2020-12-21] MEDS: FLUCONAZOLE 200 MG/100 ML 100 ML IV SCH (09:18)
[2020-12-21] MEDS: LINEZOLID 600 MG/D5W 300ML 300 ML IV SCH (09:18)
[2020-12-21] MEDS: EYE LUBRICANT OPTH OINT 3.5GM TUBE OP SCH ×2 (09:18→18:46)
[2020-12-21] MEDS: NYSTATIN 15 GM POWDER UD BTL TOP SCH ×2 (09:19→18:46)
[2020-12-21] MEDS: ASCORBIC ACID 500 MG TAB PO SCH ×2 (09:19→16:53)
[2020-12-21] MEDS: BALSAM PERU/CASTOR OIL 60 GM OINT...G. TP SCH ×2 (09:19→21:20)
[2020-12-21] MEDS: ZINC SULFATE 50 MG CAP PO SCH (09:19)
[2020-12-21] MEDS ORDERED: ACETAMINOPHEN 1000 MG/100 ML IV STA (12:07)
[2020-12-21] MEDS ORDERED: HEPARIN SOD (PORCINE) 1000 UNIT/ML SDV ONE (16:44)
[2020-12-21] MEDS: ENOXAPARIN SOD INJ 40 MG/0.4 ML SYR SC SCH (18:46)
[2020-12-21] MEDS ORDERED: ALBUMIN 25% 12.5GM 0.25 GM/ML BTL IV NR (19:45)
[2020-12-21] MEDS: PHENYLEPHRINE 10MG/ML VIAL 40 MG in DEXTROSE 5% 250ML 246 ML IV PRN (21:25)
[2020-12-21] MEDS: ACETAMINOPHEN 325 MG TAB PO PRN (22:54)
[2020-12-22] VITALS (27 sets, daily range): BP systolic 50–161; BP diastolic 20–99
[2020-12-22] MEDS: ROCURONIUM 1250MG/NS 250 250 ML IV PRN ×2 (00:23→16:09)
[2020-12-22] MEDS: PHENYLEPHRINE 10MG/ML VIAL 40 MG in DEXTROSE 5% 250ML 246 ML IV PRN ×4 (01:23→23:21)
[2020-12-22] MEDS: FENTANYL 2000MCG/NS 250 250 ML IV PRN ×4 (02:02→23:12)
[2020-12-22] MEDS: PROPOFOL IV EMULSION 10MG/ML 100 ML IV SCH (02:03)
[2020-12-22] MEDS ORDERED: NACL 0.9% IV ONE (02:26)
[2020-12-22] MEDS ORDERED: PHENYLEPHRINE HCL IV ONE (02:26)
[2020-12-22] MEDS: VASOPRESSIN 60 UNIT in DEXTROSE 5% 50ML 57 ML IV PRN ×2 (03:21→21:17)
[2020-12-22] MEDS: MIDAZOLAM HCL 5MG/ML 10ML VIAL 100 ML IV PRN ×3 (03:57→18:45)
[2020-12-22] MEDS ORDERED: PHENYLEPHRINE HCL IN 0.9% NACL 250 ML IV ONE (03:57)
[2020-12-22 06:20] LABS: BASOPHILS # (AUTO) 0.7 (0.0-0.1); BASOPHILS % 1.5 % (0.0-1.0); EOSINOPHILS # (AUTO) 0.2 (0.0-0.4); EOSINOPHILS % 0.4 % (0.0-6.0); HEMATOCRIT 28.3 % (34.2-44.1); HEMOGLOBIN 8.3 g/dL (12.0-16.0); LYMPHOCYTES # (AUTO) 4.6 (1.0-3.2); LYMPHOCYTES % 10.7 % (18.0-39.1); MEAN CORPUSCULAR HEMOGLOBIN 30.5 pg (28-32); MEAN CORPUSCULAR HGB CONC 29.3 g/dL (31-35); MONOCYTES # (AUTO) 4.5 (0.2-0.8); MONOCYTES % 10.5 % (4.4-11.3); NEUTROPHILS # (AUTO) 25.7 (2.1-6.9); NEUTROPHILS % 59.6 % (38.7-80.0); PLATELET COUNT 351 x10e3/uL (140-360); RED BLOOD COUNT 2.72 x10e6/uL (3.6-5.1); RED CELL DISTRIBUTION WIDTH 20.3 % (11.7-14.4)
[2020-12-22] MEDS ORDERED: SODIUM BICARBONATE 8.4% SYRING 50 ML ONE (06:41)
[2020-12-22 06:46] LABS: ALBUMIN 2.2 g/dL (3.5-5.0); ALBUMIN/GLOBULIN RATIO 0.4 (0.8-2.0); ANION GAP 34.7 mmol/L (8-16); CALCIUM 7.5 mg/dL (8.4-10.2)
[2020-12-22 06:51] LABS: POTASSIUM 6.7 mmol/L (3.5-5.1)
[2020-12-22 06:52] LABS: CREATININE, SERUM 3.6 mg/dL (0.57-1.11)
[2020-12-22] MEDS ORDERED: SODIUM BICARBONATE 8.4% INJ 50 ML SYR IV ONE ×3 (06:57→15:30)
[2020-12-22 07:32] LABS: BAND NEUTROPHILS % (MANUAL) 3 %; EOSINOPHILS % (MANUAL) 1 % (0-7); LYMPHOCYTES % (MANUAL) 5 % (19-48); METAMYELOCYTES % (MANUAL) 3 % (0-0); MONOCYTES % (MANUAL) 2 % (3.4-9.0); MYELOCYTES % (MANUAL) 16 % (0-0); NEUTROPHILS % (MANUAL) 69 % (40-74); NUCLEATED RED BLOOD CELLS 14; PLATELET ESTIMATE ADEQUATE; PLATELET MORPHOLOGY COMMENT NORMAL; PROMYELOCYTES % (MANUAL) 1 % (0-0); RBC MORPHOLOGY COMMENT NORMAL
[2020-12-22] MEDS ORDERED: DEXTROSE 50% SYRINGE 50 ML IV STA (07:46)
[2020-12-22] MEDS: SODIUM BICARBONATE 8.4% SYRING 150 ML in DEXTROSE 5% 1,000 ML IV SCH ×2 (08:00→21:15)
[2020-12-22] MEDS ORDERED: SOD POLYSTYRENE SULFONATE SUSP 15 GM/60 ML BTL PO ONE (08:00)
[2020-12-22] MEDS ORDERED: DEXTROSE 50% SYRINGE 50 ML IV PRN (08:00)
[2020-12-22] MEDS: DEXTROSE 10% 1,000 ML IV SCH (08:20)
[2020-12-22 08:43] LABS: ABG HCO3 15 mmol/L (22-26); ABG PCO2 62 mmHg (35-45); ABG PH 6.98 (7.35-7.45); ABG PO2 71 mmHg (80-105); ABG TCO2 16
[2020-12-22] MEDS: METOPROLOL TARTRATE 25 MG TAB PO SCH ×2 (09:00→15:26)
[2020-12-22] MEDS ORDERED: NYSTATIN 15 GM POWDER UD BTL TOP SCH (09:00)
[2020-12-22] MEDS: EYE LUBRICANT OPTH OINT 3.5GM TUBE OP SCH ×2 (09:30→16:18)
[2020-12-22] MEDS: NYSTATIN 15 GM POWDER UD BTL TOP SCH (09:31)
[2020-12-22] MEDS: BALSAM PERU/CASTOR OIL 60 GM OINT...G. TP SCH ×2 (09:31→21:15)
[2020-12-22 09:36] LABS: ANION GAP 34.8 mmol/L (8-16); CALCIUM 7.4 mg/dL (8.4-10.2); CREATININE, SERUM 3.63 mg/dL (0.57-1.11); POTASSIUM 5.8 mmol/L (3.5-5.1)
[2020-12-22] MEDS: FLUCONAZOLE 200 MG/100 ML 100 ML IV SCH (09:43)
[2020-12-22] MEDS: ZINC SULFATE 50 MG CAP PO SCH (09:43)
[2020-12-22] MEDS: ASCORBIC ACID 500 MG TAB PO SCH ×2 (09:43→17:03)
[2020-12-22] MEDS: NOREPINEPHRINE 8 MG/D5W 250 ML 250 ML IV PRN ×3 (13:11→21:41)
[2020-12-22] MEDS: ENOXAPARIN SOD INJ 40 MG/0.4 ML SYR SC SCH (17:03)
[2020-12-22] MEDS ORDERED: FUROSEMIDE INJ 10 MG/ML 4 ML VIAL IV ONE (22:45)
[2020-12-23] VITALS (8 sets, daily range): BP systolic 87–143; BP diastolic 23–75
[2020-12-23] MEDS ORDERED: SODIUM BICARBONATE 8.4% SYRING 100 ML ONE (00:10)
[2020-12-23] MEDS ORDERED: SODIUM BICARBONATE 8.4% INJ 50 ML SYR IV STA ×4 (00:16)
[2020-12-23] MEDS: DEXTROSE 10% 1,000 ML IV SCH (03:01)
[2020-12-23] MEDS: VASOPRESSIN 60 UNIT in DEXTROSE 5% 50ML 57 ML IV PRN (03:11)
[2020-12-23] MEDS: PHENYLEPHRINE 10MG/ML VIAL 40 MG in DEXTROSE 5% 250ML 246 ML IV PRN (03:15)
[2020-12-23] MEDS: MIDAZOLAM HCL 5MG/ML 10ML VIAL 100 ML IV PRN (04:55)
[2020-12-23] MEDS ORDERED: EPINEPHRINE HCL SYRINGE ONE ×2 (05:46→14:59)
== END 2020-12-23 16:35 | disposition expired | DRG 207 ==
LOC: ER 17:47 → OBSVTOIN 19:56 → ERHOLD 19:56 → IMCU 11-29 14:37 → ICU 12-06 15:42 → COVIDICU 12-15 14:37
PROVIDERS: ADMIT Internal Medicine; ATTEND Internal Medicine
PROC: 3E0333Z Introduction of Anti-inflammatory into Peripheral Vein, Percutaneous Approach (ICD-10-PCS; 2020-11-28)
PROC: XW033E5 Introduction of Remdesivir Anti-infective into Peripheral Vein, Percutaneous Approach, New Technology Group 5 (ICD-10-PCS; 2020-11-29)
PROC: 02HV33Z Insertion of Infusion Device into Superior Vena Cava, Percutaneous Approach (ICD-10-PCS; 2020-12-04)
PROC: 3E043XZ Introduction of Vasopressor into Central Vein, Percutaneous Approach (ICD-10-PCS; 2020-12-08)
PROC: 03HB33Z Insertion of Infusion Device into Right Radial Artery, Percutaneous Approach (ICD-10-PCS; principal; 2020-12-09)
PROC: 5A1955Z Respiratory Ventilation, Greater than 96 Consecutive Hours (ICD-10-PCS; 2020-12-09)
PROC: 0BH17EZ Insertion of Endotracheal Airway into Trachea, Via Natural or Artificial Opening (ICD-10-PCS; 2020-12-09)
PROC: 02HV33Z Insertion of Infusion Device into Superior Vena Cava, Percutaneous Approach (ICD-10-PCS; 2020-12-17)
PROC: B548ZZA Ultrasonography of Superior Vena Cava, Guidance (ICD-10-PCS; 2020-12-17)
PROC: 5A1D70Z Performance of Urinary Filtration, Intermittent, Less than 6 Hours Per Day (ICD-10-PCS; 2020-12-17)
PROC: 02HV33Z Insertion of Infusion Device into Superior Vena Cava, Percutaneous Approach (ICD-10-PCS; 2020-12-19)
PROC: B548ZZA Ultrasonography of Superior Vena Cava, Guidance (ICD-10-PCS; 2020-12-19)
PROC: 5A12012 Performance of Cardiac Output, Single, Manual (ICD-10-PCS; 2020-12-23)
DX: U07.1 COVID-19 (principal); J12.82 Pneumonia due to coronavirus disease 2019; J96.01 Acute respiratory failure with hypoxia; A41.89 Other specified sepsis; R65.20 Severe sepsis without septic shock; N17.0 Acute kidney failure with tubular necrosis; Z68.42 Body mass index [BMI] 45.0-49.9, adult; R57.9 Shock, unspecified; E87.2 Acidosis; I10 Essential (primary) hypertension; F41.9 Anxiety disorder, unspecified; F32.A Depression, unspecified; E87.6 Hypokalemia; E66.01 Morbid (severe) obesity due to excess calories; M32.9 Systemic lupus erythematosus, unspecified; R73.03 Prediabetes; D64.9 Anemia, unspecified; E88.09 Other disorders of plasma-protein metabolism, not elsewhere classified; B37.2 Candidiasis of skin and nail; R60.1 Generalized edema; B95.62 Methicillin resistant Staphylococcus aureus infection as the cause of diseases classified elsewhere; B95.61 Methicillin susceptible Staphylococcus aureus infection as the cause of diseases classified elsewhere; L30.4 Erythema intertrigo; L89.899 Pressure ulcer of other site, unspecified stage; L89.321 Pressure ulcer of left buttock, stage 1; E87.5 Hyperkalemia; E16.2 Hypoglycemia, unspecified
CPT/HCPCS: 31500; 36415; 36569; 36600; 71045; 74018; 76700; 80048; 80053; 80061; 80202; 81001; 82550; 82553; 82805; 82948; 83036; 83735; 84100; 84132; 84484; 85025; 86140; 86705; 86706; 87040; 87070; 87186; 87205; 87340; 90962; 92950; 93005; 93306; 94002; 94003; 94660; 96361; 99251; 99285; J0171; J0330; J0456; J0692; J0696; J1100; J1450; J1644; J1650; J1940; J2020; J2250; J2370; J2405; J2543; J3370; J3480; J7030; J7050; J7070; J7121; P9047; U0002